=== PATIENT | male | born 1975 | race Caucasian/White ===

== ENCOUNTER 2018-05-13 12:54 | Emergency (ER) | payer MEDICARE ==
[~2018-05-13] VITALS: Ht 167.6 cm; Wt 73.0 kg
[2018-05-13 12:55] VITALS: BP_SYST 139; BP_SYST 147
[2018-05-13] MEDS ORDERED: NACL 0.9% 1,000 ML IV ONE ×2 (13:30→14:45)
[2018-05-13 13:41] LABS: HEMATOCRIT 44.8 % (36-54); HEMOGLOBIN 14.8 g/dL (14.0-18.0); MEAN CORPUSCULAR HEMOGLOBIN 32 pg (27-31); MEAN CORPUSCULAR HGB CONC 33 % (32-36); MEAN CORPUSCULAR VOLUME 96 fL (79.0-98.0); PLATELET COUNT (AUTO) 146 K/uL (130-430); RED BLOOD CELL COUNT(AUTO) 4.67 MIL/uL (4.2-6.2); RED CELL DISTRIBUTION WIDTH 12.6 % (9.0-15.0)
[2018-05-13 13:49] LABS: WHITE BLOOD COUNT (AUTO) 3.3 K/uL (4.8-10.8)
[2018-05-13 13:58] LABS: ALANINE AMINOTRANSFERASE 132 U/L (12-78); ALBUMIN 4.1 g/dL (3.4-4.8); ANION GAP 15 (5-15); ASPARTATE AMINOTRANSFERASE 215 U/L (10-37); CALCIUM 8.6 mg/dL (8.4-11.0); CHLORIDE 107 mmol/L (98-107); CREATININE 0.85 mg/dL (0.55-1.30); GLUCOSE 150 mg/dL (70-99); SODIUM SERUM 146 mmol/L (136-145); TOTAL BILIRUBIN 0.5 mg/dL (0.0-1.0)
[2018-05-13 14:06] LABS: GFR AFRICAN AMERICAN 126 mL/min (>90)
[2018-05-13 14:07] LABS: ACETAMINOPHEN < 1 ug/mL (1-30)
[2018-05-13 14:10] LABS: ALCOHOL, BLOOD 453 mg/dL (<10)
[2018-05-13] MEDS ORDERED: ASPIRIN 81 MG TAB.CHEW PO ONE (14:15)
[2018-05-13 14:17] LABS: UREA NITROGEN, BLOOD 3 mg/dL (8-21)
[2018-05-13 14:23] LABS: BAND % (MANUAL) 0 % (0-6)
[2018-05-13 14:24] LABS: ATYPICAL LYMPHOCYTES % 0 % (0-0); BASOPHILS % (MANUAL) 0 % (0-2); EOSINOPHILS % (MANUAL) 2 % (0-7); LYMPHOCYTES % (MANUAL) 45 % (20-46); MONOCYTES % (MANUAL) 12 % (0-11)
[2018-05-13] MEDS ORDERED: POTASSIUM CHLORIDE 20 MEQ TAB.PRT.SR PO ONE (14:45)
[2018-05-13] MEDS ORDERED: ASPIRIN 81 MG TABLET(ECOTRIN) ONE (15:46)
[2018-05-13] MEDS ORDERED: KETOROLAC TROMETHAMINE 30 MG VIAL IVP ONE (16:00)
== END 2018-05-13 16:42 | disposition home or self-care (01) ==
LOC: SED 12:54
DX: F10.129 Alcohol abuse with intoxication, unspecified (principal); R07.89 Other chest pain; I42.9 Cardiomyopathy, unspecified
CPT/HCPCS: 36415; 71045; 80053; 84484; 85007; 85027; 93005; 96374; 99285; G0480; G0481; G0482; J1885; J7030